=== PATIENT | female | born 1985 | race Caucasian/White ===

== ENCOUNTER 2017-05-27 03:42 | Emergency (ER) | payer MEDICAID ==
[~2017-05-27] VITALS: Ht 170.2 cm; Wt 100.0 kg
[2017-05-27 03:43] VITALS: BP 146/87; PULSE 117; RESP 18; TEMP 97.9; O2SAT 100
[2017-05-27] MEDS ORDERED: ACETAMINOPHEN/HYDROcodone 325 MG/5 MG TAB PO ONE (04:15)
[2017-05-27] MEDS ORDERED: IBUPROFEN 600 MG TAB PO ONE (04:15)
--- NOTE | 2017-05-27 04:21 | PD ---
HPI Chief Complaint: Injury Time Seen by Provider: 04:09 Travel History International Travel<30 days: No Contact w/Intl Traveler<30days: No Traveled to known affect area: No History of Present Illness HPI 32-year-old white female presents to emergency department for evaluation of left ankle pain after a slip and fall down a set of stairs. She states that she twisted her left ankle. She states that she does not recall hearing or feeling a pop or crack. She denies injury to her head, neck or back. Patient' s had history of a herniated disc in her lower back with surgery in the past. Pain is moderate but more severe when she attempts to weight-bear. No alleviating factor. PFSH Past Medical History Narrative Medical Lumbar herniated disc Immunizations Current: Yes Tetanus Vaccination: < 5 Years ?: Not LMP: 05/23/2017 Past Surgical History Narrative Surgical Lumbar discectomy Neurologic Surgery: Yes (BACK) Social History Alcohol Use: Yes Tobacco Use: Yes Substance Use: No Allergies-Medications (Allergen,Severity, Reaction): Coded Allergies: No Known Allergies (Unverified , 05/27/17) Reported Meds & Prescriptions Reported Meds & Active Scripts Active No Active Prescriptions or Reported Medications Review of Systems General / Constitutional: No: Fever Eyes: No: Visual changes HENT: No: Headaches Cardiovascular: No: Chest Pain or Discomfort Respiratory: No: Shortness of Breath Gastrointestinal: No: Abdominal Pain Genitourinary: No: Dysuria Musculoskeletal: Positive: Arthralgias, Limited ROM, Edema, Pain, No: Weakness , Cramping, Atrophy Skin: No Rash Neurologic: No: Weakness Psychiatric: No: Depression Endocrine: No: Polydipsia Hematologic/Lymphatic: No: Easy Bruising Physical Exam Narrative GENERAL: This is a well-nourished, well-developed patient, in no apparent distress. SKIN: No rashes, ecchymoses or lesions. Warm and dry. HEAD: Atraumatic. Normocephalic. EYES: PERRL, EOMI, no discharge or injection. No scleral icterus. EARS: Clear NOSE: Nasal turbinates appear normal. THROAT: Mucosa pink and moist. Airway patent. NECK: Trachea midline. supple, moves head freely. No central bony tenderness. LUNGS: Clear to auscultation. CV: Regular in rhythm. ABDOMEN: Soft nontender. EXT: No clubbing cyanosis. Examination of the left lower extremity reveals mild to moderate ankle swelling bilaterally. She has tenderness over the medial malleolus. The skin is intact. She has tenderness to the anterior talar fibular ligament as well as the anterior alert tibial ligament. She has no instability. She has intact gross sensation. Good distal pulses. The right lower extremity as well as the upper extremities are unremarkable for acute bony tenderness or deformity. Back: No central bony tenderness to palpation of dorsal lumbar spine. Data Data Last Documented VS Vital Signs Date Time Temp Pulse Resp B/P (MAP) Pulse Ox O2 Delivery O2 Flow Rate FiO2 05/27/17 03:43 97.9 117 18 146/87 (106) 100 Room Air Orders Orders Ankle, Complete ([id number]) (05/27/17 04:12) Ice/Cold Pack (05/27/17 04:12) Crutches (05/27/17 04:12) Acetamin-Hydrocod 325-5 Mg ([place] 5-325 (05/27/17 04:15) Ibuprofen (Motrin) (05/27/17 04:15) Ankle, Complete ([id number]) (05/27/17 04:31) Splint Or Brace Apply/Monitor (05/27/17 04:31) MDM Medical Decision Making Medical Screen Exam Complete: Yes Emergency Medical Condition: Yes Medical Record Reviewed: Yes Interpretation(s) Left ankle: Negative for acute fracture. Positive swelling. There is some slight irregularity along the talus which may be a donor site from a ligament injury Differential Diagnosis MDM: High Differential diagnoses: Fracture, sprain, strain, dislocation, contusion, neurovascular injury Narrative Course Patient is given Lortab 5 mg and Motrin 600 mg by mouth. Ice pack applied. X- ray of the right ankle. Diagnosis Primary Impression: Severe sprain of left ankle Qualified Codes: S93.402A - Sprain of unspecified ligament of left ankle, initial encounter Patient Instructions: General Instructions, Narcotic given in the ED Departure Forms: Tests/Procedures, Work Release Special Instructions: No work 1 week. Additional Instructions: Rest. Elevation. Ice packs for the next 3 days. Torsten wrap and crutches. No weight-bearing and then progress to weight-bearing as tolerated. Medications as directed Follow-up with an orthopedist or your doctor in one week. Return to the ER if any problems Med/Other Pt SpecificInfo: Prescription(s) given Scripts No Active Prescriptions or Reported Meds Disposition: 01 DISCHARGE HOME Condition: Stable Rupert Pino May 27, 2017 04:21
[2017-05-27] MEDS ORDERED: DICL75TA PO (04:35)
--- NOTE | 2017-05-27 05:15 | RADRPT ---
EXAM DATE/TIME: 05/27/2017 04:21 [facility] COMPARISON: No previous studies available for comparison. INDICATIONS : Left ankle pain after fall down stairs. MEDICAL HISTORY : None. SURGICAL HISTORY : None. ENCOUNTER: Initial ACUITY: 1 day PAIN SCORE: 10/10 LOCATION: Left lateral ankle. FINDINGS: No fracture is seen. The ankle is normally aligned. There is soft tissue swelling seen laterally. The re is a calcaneal spur at the plantar aponeurosis attachment site. CONCLUSION: Lateral soft tissue swelling. Kendrick Hess MD on May 27, 2017 at 5:13 Board Certified Radiologist. This report was verified electronically.
== END 2017-05-27 04:52 | disposition home or self-care (01) ==
LOC: NEPD 03:42
DX: S93.402A Sprain of unspecified ligament of left ankle, initial encounter (principal); W10.9XXA Fall (on) (from) unspecified stairs and steps, initial encounter
CPT/HCPCS: 73610; 99283; E0113